=== PATIENT | male | born 1995 | race Caucasian/White ===

== ENCOUNTER 2022-11-01 11:08 | Emergency (ER) | payer MEDICAID, SELFPAY ==
[2022-11-01 11:20] VITALS: BP 131/81; PULSE 101; RESP 18; TEMP 37.1; O2SAT 98; BMI 23.4
--- NOTE | 2022-11-01 11:36 | EXP.UTC ---
Discharge Plan Disposition Patient Disposition: Home, Self-Care Condition: Good Prescriptions Prescriptions: New ondansetron 4 mg tablet,disintegrating 4 mg PO Q8H PRN (Reason: nausea and vomiting) Qty: 10 0RF dicyclomine 10 mg capsule 10 mg PO TID Qty: 15 0RF Referrals Follow up/Referrals: Provider,Referral, [Primary Care Provider] - See instructions Activity Restrictions/Add. Instructions Additional Instructions/Restrictions: Drink extra fluids with and between meals. If you have difficulty drinking, try very small amounts of water or suck on ice chips. ? Avoid fruit juices, as these do not replace minerals and can actually increase diarrhea. ? Children and adults can use sports drinks to replenish electrolytes. Younger children and infants should use products formulated for children, like oral rehydration solutions. ? Eat food in small amounts and let your stomach recover. ? Get lots of rest. You may feel tired or weak. ? No greasy or fried foods for the next 24-48 hours BRAT diet Bananas Rice Apples and [place] ? Make sure to drink plenty of liquids ? Return if needed ? Straight to ER if any life threatening symptoms ? Zofran as prescribed ? You was given an outpatient order for diarrhea panel, please collect specimen and bring back to outpatient lab then call back to the [facility] or follow up with family doctor for results ? Follow up with family doctor in the next 48-72 hours if no improvement or any worsening of symptoms Clinical Impressions Clinical Impression: Nausea vomiting and diarrhea Stand Alone Forms Stand Alone Forms: Work/School Release Instructions Patient Instructions: DI for Nausea -- Adult, Diarrhea, Nausea and Vomiting-Adult Discharge ED Provider: Sujatha Edwards [facility] [place] HPI General Stated complaint: vomiting, diarrhea, body aches Time Seen by Provider: 11/01/22 11:36 History of Present Illness Provider Complaint: Patient states that he eat a stouffers lasagna last night and shortly after he started with N/V/D States that he continued to have it through the night States that he isnt having any Belly pain but does have some cramping States that he has been drinking fluids to help keep him hydrated Related Data Previous Rx's Medication Instructions Recorded dicyclomine 10 mg capsule 10 mg PO TID #15 caps 11/01/22 ondansetron 4 mg disintegrating 4 mg PO Q8H PRN nausea and 11/01/22 tablet vomiting #10 tabs Allergies Allergy/AdvReac Type Severity Reaction Status Date / Time No Known Allergies Allergy Verified 07/04/22 14:01 [facility] Disclaimer: The information contained in this section may have been updated after the patient was seen, as this information can be updated by other users. Social History Smoking Status: Never smoker alcohol intake: never substance use type: denies use current occupational status: employed Travel in the last 8 weeks: None household members: spouse and children housing: house lives independently: Yes marital status: ROS Obtained: Yes All systems reviewed & no additional complaints except as documented and Yes Systems reviewed as appropriate & no additional complaints except as documented ENT Ears, Nose, Mouth, and Throat: Reports system reviewed and no additional complaints, except as documented and Reports as per HPI Cardiovascular Cardiovascular: Reports system reviewed and no additional complaints, except as documented and Reports as per HPI Respiratory Respiratory: Reports system reviewed and no additional complaints, except as documented and Reports as per HPI Gastrointestinal Gastrointestingal: Reports system reviewed and no additional complaints, except as documented, as per HPI, cramping, diarrhea, nausea and vomiting Physical Exam General General appearance: alert and in no
[2022-11-01 11:49] LABS: UTC Influenza A Antigen Negative (Negative); UTC Influenza B Antigen Negative (Negative)
[2022-11-01 12:01] VITALS: BP 131/81; PULSE 101; RESP 18; TEMP 37.1; O2SAT 98
== END 2022-11-01 12:05 | disposition home or self-care (01) ==
PROVIDERS: Emergency Provider Nurse Practitioner
DX: R11.2 Nausea with vomiting, unspecified (principal); R19.7 Diarrhea, unspecified
CPT/HCPCS: 87804; 99212; 99214; G0463

== ENCOUNTER 2025-02-22 11:39 | Emergency (ER) | payer OTHER, SELFPAY ==
[2025-02-22] VITALS (7 sets, daily range): BP systolic 118–143; BP diastolic 74–94; PULSE 60–79; RESP 16–17; TEMP 36.6–37.1; O2SAT 98–99; BMI 22.9
--- NOTE | 2025-02-22 11:49 | ECG_ITS ---
APPROVED REPORT Exam: Resting ECG HR:70 bpm ECG Measurements Heart Rate 70 AXES MI 149 P 82 QRSd 88 QRS 82 QT 365 T 47 QTc 386 Conclusion SINUS RHYTHM WITH SINUS ARRHYTHMIA NORMAL ECG UNCONFIRMED REPORT Electronically signed by : DIMAS VERA, 02/22/2025 23:43:52
--- NOTE | 2025-02-22 11:55 | HMH.EDGENADL ---
Discharge Plan Disposition Patient Disposition: Home, Self-Care Prescriptions Prescriptions: No Action ondansetron 4 mg tablet,disintegrating 4 mg PO Q8H PRN (Reason: nausea and vomiting) Qty: 10 0RF dicyclomine 10 mg capsule 10 mg PO TID Qty: 15 0RF Referrals Follow up/Referrals: Yifan Delcid [Primary Care Provider, Medical] - See instructions Activity Restrictions/Add. Instructions Additional Instructions/Restrictions: Continue to drink plenty of fluids, including water, sugar-free Gatorade, and Pedialyte to stay hydrated and replace electrolytes. Avoid prolonged heat/sun exposure and take frequent breaks while working to avoid heat exhaustion and dehydration. If you develop any new or worsening symptoms, or if you become concerned for your health for any reason, return to the emergency department for evaluation. Clinical Impressions Clinical Impression: Dehydration, Heat exposure Print Language Print Language: Bulgarian Discharge ED Provider: Brandon Venegas General Adult HPI General Chief complaint: Dizziness Stated complaint: dehydrated, nausea, dizzy Time Seen by Provider: 02/22/25 11:45 Mode of Arrival: Ambulatory Source of Information: Patient Description of Symptoms (Recalled from ER Triage Doc. by RN): Patient presents to ED from home with c/o generalized bodyaches, lethargy and mild episodes of dizziness since Saturday. Patient states he thinks he is deyhydrated, reports he works out in the heat everyday. Denies chest pain, denies SOA. History of Present Illness HPI narrative: Cheng Sultana is a 30-year-old male, otherwise healthy who presents to the emergency department for complaints of possible dehydration. Patient states that he was working out in the heat all day Saturday (2 days ago) and had mowed several yards and mowed hay. That night, he began to feel achiness in all of his muscles and joints and fatigue. He felt like he was running a significant amount. This went into the following day. He felt like he was dehydrated because of skin would tend when he pinched it. He has been drinking Gatorlite to try and compensate, however he still feels dehydrated. He denies any chest pain, shortness of breath, abdominal pain, nausea, vomiting, dysuria or hematuria. 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 Related Data Previous Rx's ?Medication ?Instructions ?Recorded dicyclomine 10 mg capsule 10 mg PO TID #15 caps 11/01/22 ondansetron 4 mg disintegrating 4 mg PO Q8H PRN nausea and 11/01/22 tablet vomiting #10 tabs Allergies Allergy/AdvReac Type Severity Reaction Status Date / Time No Known Allergies Allergy Verified 07/04/22 14:01 [facility] Disclaimer: The information contained in this section may have been updated after the patient was seen, as this information can be updated by other users. Social History Smoking Status: Never smoker alcohol intake: never substance use type: denies use current occupational status: employed Travel in the last 8 weeks?: None household members: spouse and children housing: house lives independently: Yes marital status: Have you lived/traveled outside [place] in past 30 days?: No Contact w/someone who lives/traveled outside US past 30 days?: No Exposure to someone with infectious disease in past 14 days?: No Do you have a fever (greater than 100.4 F or 38 C)?: No Have you tested positive for COVID-19?: No Exposed to someone with COVID-19 in past 14 days?: No Do you have a sore throat?: No Do you have a cough?: No Do you have any weakness?: Yes Do you have any diarrhea?: No Are you experiencing any unusual bleeding?: No Do you have any muscle aches/pain?: No Do you have any abdominal pain?: No Are you experiencing loss of taste or smell?: No Other Medical History Have you received the Pneumonia Vaccine: No ROS Obtained: Yes Systems reviewed as appropriate & no additional complaints except as documented Physical Exam General General appearance: alert and in no apparent distress Head Head exam: atraumatic Eye Eye exam: Present normal appearance ENT ENT exam: Present normal external ear exam Neck Neck exam: Present full ROM Chest Chest inspection: Present symmetric chest wall rise Respiratory Respiratory exam: Present normal lung sounds bilaterally; Absent respiratory distress Cardiovascular Cardiovascular exam: Present regular rate and normal rhythm Abdominal Exam Abdominal exam: Present soft; Absent tenderness or guarding exam: Present deferred Extremities Exam Extremities exam: Present normal inspection Back Exam Back exam: Present normal inspection Neurological Exam Neurological exam: Present alert and oriented X3 Psychiatric Psychiatric exam: Present normal affect Skin Skin exam: Present warm and dry Medical Decision Making Medical Records Screening: Per USPSTF and CDC recommendations, given the prevalence of disease in our region, it is our hospital?s policy to screen for HIV and viral Hepatitis for all patients aged 18 and over and those with ongoing risk factors. [place] Inquiry Pt receiving controlled substance: No Vital Signs: 02/22/25 11:46 02/22/25 11:50 02/22/25 12:11 Temperature 97.8 F Temperature Source Oral Pulse Rate 69 74 Pulse Rate [Left] 69 Respiratory Rate 17 17 Blood Pressure 136/94 H 143/82 H Blood Pressure [Right Arm] 136/74 Blood Pressure Mean 104 Blood Pressure Mean [Right Arm] 94 Blood Pressure Source [Right Arm] Automatic Cuff 02 Sat by Pulse Oximetry 98 99 99 Oxygen Delivery Method Room Air Room Air 02/22/25 12:20 02/22/25 12:30 Temperature Temperature Source Pulse Rate 60 69 Pulse Rate [Left] Respiratory Rate Blood Pressure 118/83 118/85 Blood Pressure [Right Arm] Blood Pressure Mean Blood Pressure Mean [Right Arm] Blood Pressure Source [Right Arm] 02 Sat by Pulse Oximetry 99 99 Oxygen Delivery Method Lab Data Lab Results 02/22/25 11:58: WBC 6.8, RBC 5.17, Hgb 14.6, Hct 42.9, MCV 83.0, MCH 28.2, MCHC 34.0, RDW 12.3, Plt Count 219, MPV 10.5 H, Neut % (Auto) 66.6, Lymph % (Auto) 24.3, [place] % (Auto) 6.9, Eos % (Auto) 1.5, Baso % (Auto) 0.3, Neut # (Auto) 4.5, Lymph # (Auto) 1.7, [place] # (Auto) 0.5, Eos # (Auto) 0.1, Baso # (Auto) 0.0, Sodium 136, Potassium 4.3, Chloride 100, Carbon Dioxide 30, Anion Gap 10.3, BUN 16, Creatinine 0.90, Estimated Creat Clear 123, Estimated GFR 99, Est GFR ( Amer) 120, Glucose 146 H, Calcium 9.4, Magnesium 2.1, Total Bilirubin 0.4, AST 29, ALT 21, Alkaline Phosphatase 68, Total Creatine Kinase 117, Total Protein 7.2, Albumin 4.5, Globulin 2.7, Albumin/Globulin Ratio 1.7 02/22/25 11:58 02/22/25 11:58 Orders (Tests/Meds): ED MEDICATIONS Generic Name Dose Route Start Last Admin Trade Name Walter PRN Reason Stop Dose Admin Sodium Chloride 1,000 mls @ 999 mls/hr 02/22/25 11:54 08 11:58 Sod Chlor 0.9% 1000ml Bag IV 02/22/25 12:54 999 mls/hr .Q1H1M ONE Administration ORDERS Category Date Time Status CBC w/Auto Diff [Complete Blood Count Auto Diff] Stat Lab 02/22/25 11:58 Completed CK [Creatine Kinase] Stat Lab 02/22/25 11:58 Completed CMP [Comprehensive Metabolic Panel] Stat Lab 02/22/25 11:58 Completed HIV Combo Stat Lab 02/22/25 11:58 Received Hepatitis C Ab Qual. W/ RFX Stat Lab 02/22/25 11:58 Received Magnesium Stat Lab 02/22/25 11:58 Completed ECG Data Tracing #1: I reviewed this ECG and interpreted as documented below: Normal sinus rhythm. No ST elevation or depression. QTc normal at 386. Medical Decision Narrative: Cheng Sultana is a 30-year-old male, otherwise healthy who presents to the emergency department for complaints of possible dehydration. Patient states that he was working out in the heat all day Saturday (2 days ago) and had mowed several yards and mowed hay. That night, he began to feel achiness in all of his muscles and joints and fatigue. He felt like he was running a significant amount. This went into the following day. He felt like he was dehydrated because of skin would tend when he pinched it. He has been drinking Gatorlite to try and compensate, however he still feels dehydrated. He denies any chest pain, shortness of breath, abdominal pain, nausea, vomiting, dysuria or hematuria. 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 On arrival, patient is borderline hypertensive with blood pressure 136/94, heart rate within normal limits, breathing comfortably on room air with oxygen saturation 99% SpO2. Physical exam, stated above, revealed an overall well-appearing male in no distress. He has moist mucous membranes. Mild skin tenting on the hands. Abdomen is soft, nontender nondistended. Cardiopulmonary exam is unremarkable. The remainder of his physical exam is grossly unremarkable as well. Differential diagnosis includes, but is not limited to: Dehydration, heat exhaustion, heatstroke, electrolyte derangement, rhabdomyolysis, among others. Low concern for infectious etiology given patient has not had any fever or infectious type symptoms, denying cough, abdominal pain, vomiting, diarrhea or urinary symptoms. Workup in the emergency department included: CBC, CMP, magnesium level, CK. Patient was given 1 L normal saline bolus. Lab work interpreted by me personally and was unremarkable for any acute pathology. On reassessment, patient remained in stable condition. This felt that his symptomatology is likely related to heat exhaustion/heat exposure and probably mild component of dehydration. Given this, is felt that he is appropriate for discharge at this time. He was encouraged to hydrate better complaining of fluids and to avoid prolonged heat exposure and to take frequent breaks. Return precautions were given. All questions were answered. He demonstrated understanding and was in agreement this plan. He was then discharged from the emergency department in stable condition. Critical Care Critical Care Time Critical Care Time: No
[2025-02-22] MEDS: 0.9 % SODIUM CHLORIDE 1000ML 1,000 ML 999 ML IV (11:58)
[2025-02-22 12:05] LABS: Hematocrit 42.9 % (42.0-52.0); Hemoglobin 14.6 g/dL (14.1-18.0); Immature Granulocytes % 0.4 %; Mean Corpuscular HGB Conc 34.0 g/dL (31.8-35.4); Mean Corpuscular Hemoglobin 28.2 pg (27.0-31.2); Mean Corpuscular Volume 83.0 fl (80-94); Nucleated Red Blood Cells % 0 %; Platelet Count 219 K/mm3 (142-424); Red Blood Count 5.17 M/mm3 (4.60-6.20); Red Cell Distribution Width-SD 37.7 fL; White Blood Count 6.8 K/mm3 (4.8-10.8)
[2025-02-22 12:12] LABS: Albumin Level 4.5 g/dl (3.5-5.0); Chloride 100 mmol/L (98-107); Potassium 4.3 mmoL/L (3.5-5.1); Sodium 136 mmol/L (136-145)
[2025-02-22 12:14] LABS: Alanine Aminotransferase 21 U/L (12-78); Anion Gap 10.3 mEq/L (5-15); Aspartate Amino Transferase 29 U/L (17-59); Blood Urea Nitrogen 16 mg/dl (9-20); Carbon Dioxide 30 mmol/L (22.0-30.0); Creatinine Clearance Estimated 123 mL/min (50-200); Creatinine,Serum 0.90 mg/dl (0.66-1.25); Estimated Glomerular Filt Rate 99 ml/min (>60); GFR (African American) 120 ML/MIN (>60)
[2025-02-22 12:15] LABS: Albumin/Globulin Ratio 1.7 (1.1-1.8); Alkaline Phosphatase 68 U/L (38-126); Bilirubin,Total 0.4 mg/dl (0.2-1.3); Calcium 9.4 mg/dl (8.4-10.2); Creatine Kinase 117 U/L (55-170); Globulin 2.7 g/dL (1.3-3.2); Glucose 146 mg/dl (74-100); Magnesium 2.1 mg/dl (1.6-2.3); Total Protein,Serum 7.2 g/dl (6.3-8.2)
--- OUTSIDE RECORDS SUMMARY | 2025-02-22 12:37 | XMS_ITS | Clinical Summary ---
[facility] Address [address] [place] [address] Care Team Providers Care Export Packer Name Role Phone Ayde De La Cruz APRN Primary Care Provider [phone] Allergies No known active allergies Medications escitalopram (Lexapro) 10 MG tabletIndicatio ns:Generalized anxiety disorder,Dysthy anthony Take 1 tablet by mouth Daily. For prevention of anxiety and depression 30 tablet 1 2 Active Active Problems No known active problems Social History Tobacco Use Types Packs/Day Years Used Date Smoking Tobacco: Never Smokeless Tobacco: Current Chew Tobacco Cessation:Ready to Q uit: Not Asked; Counseling Given: Not Answered Alcohol Use Standard Drinks/Week Comments Never 0 (1 standard drink = 0.6 oz pur e alcohol) PHQ-2 Answer Date Recorded Retired PHQ-9: Brief Depression Severity Measure Score 1 06/22/2022 Abuse Screen Answer Date Recorded Unsafe at Home or Work/School Not on file Feels Threatened by Someone? Not on file 05/2023 Does Anyone Keep You from Co ntacting Others or Doint Things Outside the Home? Not on file 04/24/2023 Physical Sign of Abuse Present Not on file 1 Housing Stability Answer Date Recorded Current Living Arrangements Not on file 04/14 Potentially Unsafe Housing Conditions Not on iona e 04/24/2023 Family and Community Support Answer Alfredo e Recorded Help with Day-to-Day Activities Not on file 04/24/2023 Lonely or Isolated Not on file 04/24/2023 Employment Answer Date Recorded Do you want help finding or keeping work or a jacqui b? Not on file 04/24/2023 Disabilities Answer Date Recorded Concentrating, Remembering, or Making Decisions Difficulty Not on file 04/24/2023 Doing Errands Independently Difficulty Not on fi le 04/24/2023 Education Answer Date Recorded Help with school or training? Not on file Preferred Language Not on file 04/24/2023 Sex and Gender Information Value Date Recorded Sex Assigned at Not on file Legal Sex Male 3:17 PM EDT Gender Identity Not on file Sexual Orientation Not on file Last Filed Vital Signs Vital Sign Reading Time Taken Comments Blood Pressure 116/74 06/22/2022 3:01 PM EST Pulse 83 06/22/2022 3:01 PM EST Temperature 36.6 C (97.8 F) 06/22/2022 3:01 PM EST Respiratory Rate - - Oxygen Saturation 98% 06/22/2022 3:01 PM EST Inhaled Oxygen Concentration - - Weight 63.6 kg (140 lb 3.2 oz) 06/22/2022 3:01 P M EST Height 172.1 cm (5' 7.75 ) 06/22/2022 3:01 PM ES T Body Mass Index 21.47 06/22/2022 3:01 PM EST Plan of Treatment Health Maintenance Due Date Last Done Comments TDAP/TD VACCINES (2 - Td or Tdap) 02/26/2016 006 ANNUAL PHYSICAL 02/22/2017 HEPATITIS C SCREENING 02/22/2017 COVID-19 Vaccine (2023-2 5 season) 2024 INFLUENZA VACCINE 04/14/2025 Pneumococcal Vaccine 0-49 Aged Out No longer eligible based on patient's age to complete this topic Insurance Care Teams Export Packer Relationship Specialty Start Date End Date Ayde De La Cruz APRN [address] [phone] PCP - General Family Medicine 06/20/22
[2025-02-22 13:17] LABS: Hepatitis C Ab Qual. W/ RFX NEGATIVE (Negative)
== END 2025-02-22 12:51 | disposition home or self-care (01) ==
PROVIDERS: Emergency Provider Student in an Organized Health Care Education/Training Program; PCP Family Medicine
DX: E86.0 Dehydration (principal); R11.0 Nausea; R42 Dizziness and giddiness; T67.8XXA Other effects of heat and light, initial encounter
CPT/HCPCS: 80053; 82550; 83735; 85025; 86803; 87389; 93005; 96360; 99284; J7030